=== PATIENT | male | born 1980 | race Two or more races ===

== ENCOUNTER 2025-04-17 02:41 | Emergency (ER) | payer OTHER ==
[~2025-04-17] VITALS: Ht 175.3 cm; Wt 83.9 kg
[~2025-04-17 02:41] MED LIST: POVIDONE-IODINE 118 ML BOTT TOP ONE
[2025-04-17] MEDS ORDERED: CEFTRIAXONE SODIUM 1,000 MG VIAL IM STA (03:26)
[2025-04-17] MEDS ORDERED: KETOROLAC TROMETHAMINE 60 MG VIAL IM STA (03:26)
[2025-04-17] MEDS ORDERED: CEFTRIAXONE SODIUM 1,000 MG VIAL ONE (03:57)
[2025-04-17] MEDS ORDERED: LIDOCAINE HCL 1% 10ML VIAL ONE (03:57)
[2025-04-17] MEDS ORDERED: KETOROLAC TROMETHAMINE 60 MG VIAL IM ONE (03:57)
[2025-04-17] MEDS ORDERED: CEPHALEXIN500 MG PO (05:58)
[2025-04-17] MEDS ORDERED: MELOXICAM15 MG PO (05:58)
== END 2025-04-17 07:02 ==
LOC: ER 02:41
DX: S01.81XA Laceration without foreign body of other part of head, initial encounter (principal); S05.91XA Unspecified injury of right eye and orbit, initial encounter; Y08.89XA Assault by other specified means, initial encounter; Y93.89 Activity, other specified; Y92.488 Other paved roadways as the place of occurrence of the external cause; Y99.8 Other external cause status